=== PATIENT | female | born 1985 | race Caucasian/White ===

== ENCOUNTER 2020-03-09 11:10 | Outpatient (CLI) | payer OTHER ==
[~2020-03-09 11:10] MED LIST: AMOX1TAB12 PO; CODE1TAB37 PO; DOCUSATE SODIU100 MG PO; Mylicon 125MG PO
== END 2020-03-09 11:18 | disposition home or self-care (01) ==
LOC: RAD 11:10
PROVIDERS: ATTEND Orthopaedic Surgery
DX: M54.5 Low back pain (principal)

== ENCOUNTER 2020-04-24 08:24 | Emergency (ER) | payer OTHER ==
[~2020-04-24] VITALS: Ht 152.4 cm; Wt 56.7 kg
== END 2020-04-24 14:26 | disposition home or self-care (01) ==
LOC: ER 08:24
DX: K29.00 Acute gastritis without bleeding (principal)